=== PATIENT | female | born 1990 | race Caucasian/White ===

== ENCOUNTER 2019-07-08 16:57 | Emergency (ER) | payer SELFPAY ==
[2019-07-08 17:06] VITALS: BP 142/104; PULSE 97; RESP 16; TEMP 36.7; O2SAT 99; BMI 20.5
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
[2019-07-08] MEDS: sulfamethoxazole-trimeth DS 160-800 mg Tablet 1 TAB PO (17:43)
[2019-07-08] MEDS: cephALEXin 500 mg Capsule PO (17:43)
[2019-07-08 18:05] VITALS: BP 146/107; PULSE 88; RESP 20; O2SAT 99
== END 2019-07-08 18:07 | disposition home or self-care (01) ==
PROVIDERS: Emergency Provider Emergency Medicine
DX: L03.019 Cellulitis of unspecified finger (principal); L02.519 Cutaneous abscess of unspecified hand; S90.811A Abrasion, right foot, initial encounter; S00.91XA Abrasion of unspecified part of head, initial encounter; Y04.2XXA Assault by strike against or bumped into by another person, initial encounter; F17.210 Nicotine dependence, cigarettes, uncomplicated
CPT/HCPCS: 12345; 99281; 99283

== ENCOUNTER 2019-07-18 08:38 | Inpatient (IN) | payer SELFPAY ==
[2019-07-18] VITALS (10 sets, daily range): BP systolic 106–142; BP diastolic 57–103; PULSE 76–98; RESP 16–18; TEMP 36.6–48.8; O2SAT 95–99; BMI 20.5
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
[2019-07-18 09:42] LABS: HCG Qualitative Urine. Negative (Negative)
[2019-07-18 09:49] LABS: Basophils # 0.1 10^3/uL (0.0-0.1); Basophils % 0.9 %; Eosinophils # 0.1 10^3/uL (0.0-0.8); Eosinophils % 1.9 %; Hematocrit 43.8 % (37.0-47.0); Hemoglobin 14.3 g/dL (11.5-15.3); Lymphocytes # 1.9 10^3/uL (0.8-4.8); Lymphocytes % 32.7 %; Mean Corpuscular HGB Conc 32.6 g/dL (30.0-36.0); Mean Corpuscular Hemoglobin 29.5 pg (28.0-34.0); Mean Corpuscular Volume 90.5 fL (81-99); Mean Platelet Volume 9.3 fL (7.4-10.4); Monocytes # 0.6 10^3/uL (0.2-0.9); Monocytes % 10.3 %; Neutrophils # 3.1 10^3/uL (1.8-7.7); Nucleated Red Blood Cells % 0 %; Platelet Count 372 10^3/cmm (130-400); Red Blood Count 4.84 10^6/uL (4.1-5.3); Red Cell Distribution Width 13.5 % (12.1-15.1); White Blood Count 5.8 10^3/uL (4.0-10.0)
[2019-07-18 09:51] LABS: Urine Color Yellow (Yellow); pH Urine 5 (5-7)
[2019-07-18 09:52] LABS: Add Urine Microscopic? YES; Bilirubin Urine Neg (NEGATIVE); Blood Urine Neg (Negative); Glucose Urine UA Norm (Normal); Ketones Urine Negative (Negative); Leukocyte Esterase Urine Trace (Negative); Nitrate Urine Negative (Negative); Protein Urine Neg (Negative); Specific Gravity, Urine 1.025 (1.005-1.030); Urobilinogen Urine Norm (Negative)
[2019-07-18 09:59] LABS: Amphetamines Screen Urine Positive (Negative); Barbiturates Screen Urine Negative (Negative); Benzodiazepines Screen Urine Negative (Negative); Cocaine Screen Urine Negative (Negative); Opiate Screen Urine Negative (Negative); PCP Screen Urine Negative (Negative); THC Screen Urine Negative (Negative)
[2019-07-18 10:13] LABS: Alanine Aminotransferase 12 U/L (0-33); Albumin Level 3.9 g/dL (3.5-5.2); Alkaline Phosphatase 95 IU/L (35-105); Aspartate Amino Transferase 14 U/L (0-32); Blood Urea Nitrogen 8 mg/dL (6-20); Calcium 9.3 mg/dL (8.5-10.5); Carbon Dioxide 23 mmol/L (22-29); Chloride 104 mmol/L (98-107); Globulin 3.7 g/dL (1.3-4.6); Glomerular Filtration Rate 99.6 mL/min (90-130); Glucose 89 mg/dL (65-115); Osmolality Calculated 281 mOsm/kg (285-295); Sodium 138 mmol/L (136-145); Thyroid Stimulating Hormone 0.99 uIU/mL (0.27-4.20); Total Bilirubin 0.2 mg/dL (0.15-1.2); Total Protein 7.6 g/dL (6.6-8.7)
[2019-07-18 10:20] LABS: Bacteria Urine 4+; WBC Urine 15-25 /hpf (0-5)
[2019-07-18 10:21] LABS: Add Urine Culture? Yes; Squamous Epithelial Cell Urine 0-4 (0-5)
[2019-07-18 10:23] LABS: Acetaminophen < 5.0 ug/mL (10-30); Alcohol Level < 10 mg/dL (0-10); Salicylate < 0.3 mg/dL (3-10)
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
[2019-07-18] MEDS: nicotine 2 mg Gum BUCCAL (21:22)
--- NOTE | 2019-07-19 04:34 | PM.EVENT ---
Event Note Event Note: I was asked to evaluate right foot wound Patient is stating that she caught her foot in between a sliding door and that caused a puncture wound behind her ankle which grew MRSA she was prescribed Keflex and Bactrim but she did not take any dosages because her threw her medications away. There is purulent discharge from the wound, mild hyperemia without worsening of cellulitis behind her rt ankle Patient has been afebrile, no leukocytosis, she is not septic I would recommend starting Bactrim for at least 7-10 days, protect foot from getting wet, put dry sterile dressing change every other day, consider tetanus shot as well
[2019-07-19 06:00] VITALS: BP 104/68; PULSE 61; RESP 16; TEMP 36.3; O2SAT 98
[2019-07-19] MEDS: sulfamethoxazole-trimeth DS 160-800 mg Tablet 1 TAB PO ×2 (09:10→17:41)
[2019-07-19 14:00] VITALS: BP 116/72; PULSE 79; RESP 16; TEMP 37.3; O2SAT 98
--- NOTE | 2019-07-19 15:39 | ECG_ITS ---
Measurements Intervals [place] Rate: 63 P: 60 OR: 143 QRS: 37 QRSD: 90 T: 39 QT: 367 QTc: 378 SINUS RHYTHM WITH SINUS ARRHYTHMIA INTERPRETATION BASED ON A DEFAULT AGE OF 40 YEARS No previous ECG available for comparison Electronically Signed On 07-19-2019 19:07:45 CDT by Janel Springer M.D. [id number]
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
[2019-07-19] MEDS: sertraline 50 mg Tablet 25 MG PO (17:41)
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
[2019-07-19 18:46] VITALS: BP 116/72; PULSE 79; RESP 16; TEMP 37.3; O2SAT 98
== END 2019-07-19 18:53 | disposition home or self-care (01) | DRG 883 ==
LOC: ER 10:38 → NP 11:25
PROVIDERS: Nurse Practitioner Family
DX: F60.3 Borderline personality disorder (principal); R45.851 Suicidal ideations; L03.115 Cellulitis of right lower limb; F17.210 Nicotine dependence, cigarettes, uncomplicated
CPT/HCPCS: 12345; 36415; 80053; 80306; 80307; 81001; 81025; 84443; 85025; 87077; 87086; 87186; 93005; 99284